=== PATIENT | female | born 1990 ===

== ENCOUNTER 2016-10-14 10:38 | Emergency (ER) | payer MEDICAID, OTHER ==
--- NOTE | 2016-10-14 11:44 | UC ---
Respiratory Complaint HPI - HPI Summary HPI Summary: Has been coughing for 3 weeks, sudden worsening with fever and awful cough starting 2 days ago. Daughter has had fever, cough, n/v/d starting 5 days ago. Pt also has R-chest discomfort when she coughs. Is using albuterol inhaler, but hers ran out. - History of Current Complaint Chief Complaint: UCRespiratory Stated Complaint: COUGH FEVER CHEST PAIN Time Seen by Provider: 10/14/16 11:14 Hx Obtained From: Patient Hx Last Menstrual Period: ended yesterday ?: No Onset/Duration: Gradual Onset, Lasting Weeks Timing: Constant Severity Initially: Mild Severity Currently: Moderate Character: Cough: Productive Aggravating Factors: Exertion, Deep Breaths, Recumbent Position Alleviating Factors: Bronchodilator, Upright Position Associated Signs And Symptoms: Positive: Fever, Chills, Wheezing, URI, Nasal Congestion - Allergies/Home Medications Allergies/Adverse Reactions: Allergies Allergy/AdvReac Type Severity Reaction Status Date / Time Penicillins Allergy Unknown Verified 04/18/16 11:24 Reaction Details Procaine [From Novocain] Allergy Altered Verified 04/18/16 11:24 Mental Status PMH/Surg Hx/FS Hx/Imm Hx Endocrine History Of: Denies: Diabetes, Thyroid Disease Cardiovascular History Of: Denies: Cardiac Disorders, Hypertension Respiratory History Of: Reports: Asthma - seasonal Denies: COPD GI/ History Of: Denies: Ulcer - Surgical History Surgical History: None - Family History Known Family History: Positive: Renal Disease Family History: Family history of kidney stones, HTN - Social History Occupation: Employed Full-time Lives: With Family Alcohol Use: Occasionally Substance Use Type: None Smoking Status (MU): Never Smoked Tobacco - Immunization History Most Recent Influenza Vaccination: 2015/2016 season Review of Systems Constitutional: Fever, Chills Skin: Negative Eyes: Negative ENT: Sore Throat Respiratory: Cough Cardiovascular: Negative Gastrointestinal: Diarrhea - minimal Genitourinary: Negative Motor: Negative Neurovascular: Negative Musculoskeletal: Negative Neurological: Negative Psychological: Negative All Other Systems Reviewed And Are Negative: Yes Physical Exam Triage Information Reviewed: Yes Appearance: Well-Appearing, No Pain Distress, Well-Nourished Vital Signs: Initial Vital Signs Temp 99 F 10/14/16 10:57 Pulse 78 10/14/16 10:57 Resp 18 10/14/16 10:57 BP 116/79 10/14/16 10:57 Pulse Ox 99 10/14/16 10:57 Vital Signs Reviewed: Yes Eye Exam: Normal Eyes: Positive: Conjunctiva Clear ENT: Positive: Hearing grossly normal, Pharynx normal, Nasal congestion, TMs normal Dental Exam: Normal Neck exam: Normal Neck: Positive: Supple, Nontender, No Lymphadenopathy Respiratory: Positive: Chest non-tender, Lungs clear, Normal breath sounds, No respiratory distress, No accessory muscle use Cardiovascular Exam: Normal Cardiovascular: Positive: RRR, No Murmur Musculoskeletal Exam: Normal Musculoskeletal: Positive: Strength Intact, ROM Intact Neurological Exam: Normal Psychological Exam: Normal Skin Exam: Normal Diagnostic Evaluation - Laboratory O2 Sat by Pulse Oximetry: 99 Respiratory Course/Dx - Differential Dx/Diagnosis Provider Diagnoses: influenza Discharge - Discharge Plan Condition: Stable Disposition: HOME Prescriptions: Albuterol HFA INHALER* [Ventolin HFA Inhaler*] 1 - 2 puff INH Q4H PRN #1 mdi PRN Reason: wheeze, cough Patient Education Materials: Influenza (ED) Forms: *Work Release Referrals: No Primary Care Phys,NOPCP [Primary Care Provider] - Additional Instructions: Call or return if you develop increasing fever, shortness of breath, chest pain , bloody sputum, or otherwise worsen. If you have not improved at all after several days, contact your primary care physician or return here.
--- NOTE | 2016-10-14 11:52 | RAD ---
INDICATION: Cough and fever. COMPARISON: There are no prior studies available for comparison. TECHNIQUE: Dual-energy PA and lateral views of the chest were obtained. FINDINGS: The heart is within normal limits in size. Mediastinal and hilar contours appear within normal limits. The lungs are clear. No pleural effusion is present. IMPRESSION: NO EVIDENCE FOR ACTIVE CARDIOPULMONARY DISEASE.
== END 2016-10-14 12:01 | disposition home or self-care (01) ==
LOC: UCEAST 10:38
DX: J11.1 Influenza due to unidentified influenza virus with other respiratory manifestations (principal); Z88.4 Allergy status to anesthetic agent; Z88.0 Allergy status to penicillin
CPT/HCPCS: 71020; 87502; 99212; G0463

== ENCOUNTER 2018-11-20 09:44 | Emergency (ER) | payer OTHER ==
[2018-11-20 10:12] VITALS: BP 106/42
--- NOTE | 2018-11-20 11:14 | UC ---
Throat Pain/Nasal Ryan HPI - HPI Summary HPI Summary: 27 yo female with one week hx of ? fever/cough/wheezing/nasal congestion/post nasal drip and for the past 1-2 days upper right gum and dental sensitivity. No cp or sob - History of Current Complaint Chief Complaint: UCDentalProblem Stated Complaint: SINUS/TOOTH/CHEST COLD Time Seen by Provider: 11/20/18 11:13 Hx Obtained From: Patient Hx Last Menstrual Period: 11/06/18 Onset/Duration: Gradual Onset, Lasting Days Severity: Moderate Pain Intensity: 2 Pain Scale Used: 0-10 Numeric Cough: Productive Associated Signs & Symptoms: Positive: Wheezing, Sinus Discomfort, Nasal Discharge - Allergies/Home Medications Allergies/Adverse Reactions: Allergies Allergy/AdvReac Type Severity Reaction Status Date / Time Penicillins Allergy Intermediate Unknown Verified 11/20/18 10:13 Reaction Details procaine Allergy Intermediate Altered Verified 11/20/18 10:13 Mental Status PMH/Surg Hx/FS Hx/Imm Hx Previously Healthy: Yes Respiratory History: Asthma - Surgical History Surgical History: None - Family History Known Family History: Positive: Cardiac Disease, Renal Disease Family History: Family history of kidney stones, HTN - Social History Alcohol Use: Occasionally Substance Use Type: Marijuana Smoking Status (MU): Never Smoked Tobacco - Immunization History Most Recent Influenza Vaccination: 2015/2016 season Review of Systems All Other Systems Reviewed And Are Negative: Yes Constitutional: Positive: Fever - ?, Fatigue Skin: Positive: Negative Eyes: Positive: Negative ENT: Positive: Dental Pain, Sore Throat, Ear Ache, Nasal Discharge, Sinus Congestion, Sinus Pain/Tenderness Respiratory: Positive: Cough, Other - wheezing Cardiovascular: Positive: Negative Gastrointestinal: Positive: Negative Genitourinary: Positive: Negative Motor: Positive: Negative Neurovascular: Positive: Negative Musculoskeletal: Positive: Negative Neurological: Positive: Negative Psychological: Positive: Negative Physical Exam Triage Information Reviewed: Yes Appearance: Well-Appearing, No Pain Distress, Well-Nourished Vital Signs: Initial Vital Signs Temp 98.1 F 11/20/18 10:07 Pulse 64 11/20/18 10:07 Resp 18 11/20/18 10:07 BP 106/42 11/20/18 10:07 Pulse Ox 100 11/20/18 10:07 Vital Signs Reviewed: Yes Eyes: Positive: Conjunctiva Clear ENT: Positive: Hearing grossly normal, Nasal congestion, Nasal drainage, TMs normal, Sinus tenderness, Uvula midline. Negative: Tonsillar swelling, Tonsillar exudate, Trismus, Muffled voice, Hoarse voice, Dental tenderness Dental Exam: Normal - no abscess oted Neck: Positive: Supple, Nontender, No Lymphadenopathy Respiratory: Positive: No respiratory distress, No accessory muscle use, Wheezing Cardiovascular: Positive: RRR, No Murmur Musculoskeletal: Positive: ROM Intact, No Edema Neurological: Positive: Alert Psychological Exam: Normal Skin Exam: Normal Throat Pain/Nasal Course/Dx - Differential Dx/Diagnosis Provider Diagnosis: Acute sinusitis, Bronchitis Discharge - Sign-Out/Discharge Documenting (check all that apply): Patient Departure All imaging exams completed and their final reports reviewed: No Studies - Discharge Plan Condition: Stable Disposition: HOME Prescriptions: DOXYcycline CAP(*) [DOXYcycline 100MG CAP(*)] 100 mg PO BID #14 cap methylPREDNISolone [Medrol Dosepak 4 MG*] 0 mg PO .SEE DARRON INSTRUCTION #1 tab Patient Education Materials: Sinusitis (ED), Acute Bronchitis (ED), How to Use a Metered-Dose Inhaler and a Spacer (ED) Referrals: Rosario Siddiqi MD [Primary Care Provider] - 4 Days (if not better ) Additional Instructions: warm facial compresses saline nasal spray (2 sprays each nostril twice daily) - Billing Disposition and Condition Condition: STABLE Disposition: Home
[2018-11-20] MEDS ORDERED: Albuterol HFA INHALER* 8 gm MDI INH ONE (11:21)
== END 2018-11-20 11:38 | disposition home or self-care (01) ==
LOC: UCEAST 09:44
DX: J01.90 Acute sinusitis, unspecified (principal); J45.909 Unspecified asthma, uncomplicated; Z88.4 Allergy status to anesthetic agent; Z88.0 Allergy status to penicillin
CPT/HCPCS: 99212; A9270-GY; G0463

== ENCOUNTER 2019-05-29 16:33 | Emergency (ER) | payer OTHER ==
[2019-05-29 16:59] VITALS: BP 111/73
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
[2019-05-29] MEDS ORDERED: Acetaminophen TAB* 325 MG PO ONE (17:46)
== END 2019-05-29 18:50 | disposition home or self-care (01) ==
LOC: UCEAST 16:33
DX: S16.1XXA Strain of muscle, fascia and tendon at neck level, initial encounter (principal); Z88.0 Allergy status to penicillin; Z87.891 Personal history of nicotine dependence; V23.9XXA Unspecified motorcycle rider injured in collision with car, pick-up truck or van in traffic accident, initial encounter; Y92.410 Unspecified street and highway as the place of occurrence of the external cause
CPT/HCPCS: 72050; 99212; A9270-GY; G0463